=== PATIENT | male | born 1935 | race Caucasian/White ===

== ENCOUNTER 2018-02-14 23:59 | Emergency (ER) | payer MEDICARE, OTHER ==
[~2018-02-14] VITALS: Ht 180.3 cm; Wt 66.3 kg
[~2018-02-14 23:59] MED LIST: LISI5 PO; PRAV10 PO; PRED20 PO; VITA400C58 PO
[2018-02-15 00:05] VITALS: BP 148/72; PULSE 58; RESP 18; TEMP 97.9; O2SAT 98
[2018-02-15] MEDS ORDERED: diphenhydrAMINE HCL 50 MG/ML VIAL IV PUSH ONE (00:15)
[2018-02-15] MEDS ORDERED: SODIUM CHLOR 0.9% 1000 ML INJ 1,000 ML IV ONE (00:15)
[2018-02-15] MEDS ORDERED: CHOL10008 (00:15)
[2018-02-15] MEDS ORDERED: PROCHLORPERAZINE INJ 10 MG/2 ML VIAL IV PUSH ONE (00:15)
[2018-02-15] MEDS ORDERED: MIRA25TA PO (00:15)
[2018-02-15] MEDS ORDERED: GLUC100013 PO (00:15)
[2018-02-15] MEDS ORDERED: OMEGCAP PO (00:15)
[2018-02-15] MEDS ORDERED: PRAV20TA2 PO (00:15)
[2018-02-15] MEDS ORDERED: LISI-519 PO (00:15)
[2018-02-15] MEDS ORDERED: MORPHINE SULFATE 4 MG/ML INJ IV ONE (00:15)
[2018-02-15] MEDS ORDERED: TAMSULOSIN HCL 0.4 MG CAP PO ONE (00:30)
[2018-02-15 00:34] LABS: BILIRUBIN, URINE NEG (NEG); BLOOD, URINE LARGE (NEG); GLUCOSE,URINE NEG (NEG); KETONE, URINE NEG (NEG); NITRITE,URINE NEG (NEG); URINE LEUKOCYTE ESTERASE NEG (NEG)
--- NOTE | 2018-02-15 00:44 | PD ---
HPI . Flank pain Chief Complaint: Flank/Kidney Pain Time Seen by Provider: 00:09 Travel History International Travel<30 days: No Contact w/Intl Traveler<30days: No Traveled to known affect area: No History of Present Illness HPI This patient presents with chief complaint of right flank pain. Onset was tonight at about 10:00. It has been getting progressively worse since that time. Pain is rated 4/10. It is associated with nausea and bloody urine. He has a history of previous kidney stones. His pain tonight is similar to that associated with the previous kidney stones. He denies any fever. PFSH Past Medical History Arthritis: Yes (BOTH HANDS) Heart Rhythm Problems: No Cancer: Yes (PROSTATE CANCER) Cardiac Catheterization: Yes Cardiovascular Problems: Yes High Cholesterol: Yes Coronary Artery Disease: Yes Diabetes: No Diminished Hearing: No Endocrine: No Gastrointestinal Disorders: No Genitourinary: Yes Hypertension: Yes Immune Disorder: No Kidney Stones: Yes (WILLA KIDNEY STONES 9 STONES IN EACH KIDNEY) Musculoskeletal: Yes Neurologic: No Psychiatric: No Respiratory: No Immunizations Current: Yes (SHINGLES) Thyroid Disease: No Tetanus Vaccination: > 5 Years Influenza Vaccination: Yes Past Surgical History Cardiac Surgery: Yes (CABG X 4) Coronary Artery Bypass Graft: Yes (x 29 mar 2012) Eye Surgery: Yes (BILATERAL EYE CATARACT SURGERY ) Genitourinary Surgery: Yes (PROSTATECTOMY: DECEMBER 2008) Neurologic Surgery: Yes (SPONDYLOLISTHESIS: JUN 2013) Tonsillectomy: Yes Other Surgery: Yes (PROSTATECTOMY) Social History Alcohol Use: Yes (SOCIALLY) Tobacco Use: No Substance Use: No Allergies-Medications (Allergen,Severity, Reaction): Coded Allergies: No Known Allergies (Verified Adverse Reaction, Unknown, 02/15/18) Reported Meds & Prescriptions Reported Meds & Active Scripts Active Flomax (Tamsulosin HCl) 0.4 Mg Cap 0.4 Mg PO HS Phenergan (Promethazine HCl) 25 Mg Tablet 25 Mg PO Q6H PRN Percocet (Oxycodone-Acetaminophen) 5-325 mg Tab 1 Tab PO Q4H PRN Reported Myrbetriq (Mirabegron) 25 Mg Tab 25 Mg PO DAILY Glucosamine (Glucosamine Sulfate) 1,000 Mg Cap 2,000 Mg PO DAILY [place]-3 Fish Oil/Vitamin (Fish Oil-Cholecalciferol) 1,000-1,000 Mg Cap 1 Cap PO DAILY Pravastatin 20 Mg Tab 20 Mg PO HS Lisinopril 5 Mg Tab 5 Mg PO DAILY Vitamin D3 (Cholecalciferol) 1,000 Unit Cap 1,000 Units DAILY Review of Systems Except as stated in HPI: all other systems reviewed are Neg Physical Exam Narrative GENERAL: Awake and alert and in no acute distress. SKIN: Warm and dry. Normal color and turgor. HEAD: Normocephalic/atraumatic. EYES: Pupils are equal. Extraocular movements are intact. NECK: Normal range of motion. Supple. CARDIOVASCULAR: Regular rate and rhythm. RESPIRATORY: Nonlabored respirations. Normal sats. ABDOMEN: Soft and nontender. No pulsatile abdominal masses palpated. : Positive right CVA tenderness. MUSCULOSKELETAL: Atraumatic. Normal muscle tone. NEUROLOGICAL: A and O 3. Nonfocal. PSYCHIATRIC: Appropriate mood and affect. Data Data Last Documented VS Vital Signs Date Time Temp Pulse Resp B/P (MAP) Pulse Ox O2 Delivery O2 Flow Rate FiO2 02/15/18 01:16 65 16 140/67 (91) 97 Room Air 02/15/18 00:05 97.9 Orders Orders ^ Saline Lock (02/15/18 00:14) Morphine Inj (Morphine Inj) (02/15/18 00:15) Prochlorperazine Inj (Compazine Inj) (02/15/18 00:15) Diphenhydramine Inj (Benadryl Inj) (02/15/18 00:15) Sodium Chlor 0.9% 1000 Ml Inj (Ns 1000 M (02/15/18 00:15) Urinalysis - C+S If Indicated (02/15/18 00:14) Tamsulosin (Flomax) (02/15/18 00:30) Ct Abd/Pel W/O Iv Contrast (02/15/18 00:30) Ed Discharge Order (02/15/18 01:23) Labs Laboratory Tests Test 02/15/18 00:28 Urine Color RED Urine Turbidity CLOUDY Urine pH 6.0 Urine Specific [place] LESS/EQUAL 1.005 Urine Protein 30 mg/dL Urine Glucose (UA) NEG mg/dL Urine Ketones NEG mg/dL Urine Occult Blood LARGE Urine Nitrite NEG Urine Bilirubin NEG Urine Urobilinogen 0.2 MG/DL Urine Leukocyte Esterase NEG Urine RBC 50-99 /hpf Urine WBC 0-2 /hpf Urine Squamous Epithelial Cells 0-5 /hpf Microscopic Urinalysis Comment CULT NOT INDICATED MDM Medical Decision Making Medical Screen Exam Complete: Yes Emergency Medical Condition: Yes Differential Diagnosis Differential diagnosis of flank pain includes but is not limited to kidney stone , pyelonephritis, musculoskeletal pain, PE, AAA Narrative Course This patient presents with the acute onset of right flank pain associated with nausea and bloody urine. He has a history of previous kidney stones. An IV has been started. He has been given Compazine, Benadryl and morphine. I have also ordered Flomax. UA and CT are pending. UA shows blood. Last Impressions Abdomen/Pelvis CT 02/15/18 0030 Signed Impressions: CONCLUSION: 1. Multiple bilateral small renal calculi are again noted. 2. Apparent new mild right hydronephrosis with no definite ureteral calculi vi sualized. The previously noted distal left ureteral calculus is no longer prese nt. The patient is now resting comfortably. He will be discharged with prescriptions for Percocet, Phenergan and Flomax. Diagnosis Primary Impression: Flank pain Additional Impression: Hematuria Qualified Codes: R31.0 - Gross hematuria Referrals: Logan Veláqzuez DO Patient Instructions: Narcotic given in the ED Scripts Tamsulosin (Flomax) 0.4 Mg Cap 0.4 MG PO HS for Manage Prostate Problems, #30 CAP 0 Refills Prov: Macarena Aburto MD 02/15/18 Promethazine (Phenergan) 25 Mg Tablet 25 MG PO Q6H Y for NAUSEA OR VOMITING, #12 TAB 0 Refills Prov: Macarena Aburto MD 02/15/18 Oxycodone-Acetaminophen (Percocet) 5-325 mg Tab 1 TAB PO Q4H Y for PAIN, #12 TAB 0 Refills Prov: Macarena Aburto MD 02/15/18 Disposition: 01 DISCHARGE HOME Condition: Stable Macarena Aburto MD Feb 15, 2018 00:44
[2018-02-15 00:51] LABS: URINE COLOR RED (YELLW/STRAW)
[2018-02-15 00:58] LABS: SQUAMOUS EPITHELIAL CELL URINE 0-5 /hpf (0-5); WBC, URINE 0-2 /hpf (0-5)
[2018-02-15 01:06] VITALS: BP 174/83; PULSE 73; RESP 16; O2SAT 98
[2018-02-15 01:16] VITALS: BP 140/67; PULSE 65; RESP 16; O2SAT 97
--- NOTE | 2018-02-15 01:16 | RADRPT ---
EXAM DATE: 02/15/2018 1:05 AM EDT AGE/SEX: 82 years / Male INDICATIONS: Right flank pain, history of kidney stones. CLINICAL DATA: This is the patient's initial encounter. Patient reports that signs and symptoms have been present for 1 day and indicates a pain score of 9/10. MEDICAL/SURGICAL HISTORY: Renal calculi. Cardiovascular disease. Carcinoma, prostatic. hyper tension CABG. Prostatectomy. RADIATION DOSE: 4.38 CTDI (mGy) COMPARISON: [facility], CT ABDOMEN & PELVIS W/O CONTRAST, 10/29/2010. . TECHNIQUE: Multiple contiguous axial images were obtained through the abdomen. Images were obtained using multiple row detector helical technique. Using automated exposure control and adjustment of the mA and/or kV according to patient size, radiation dose was kept as low as reasonably achievable to o btain optimal diagnostic quality images. DICOM format image data is available electronically for rev iew and comparison. FINDINGS: Lower Lungs: The visualized lower lungs are clear. Liver: The liver has a homogeneous density without space-occupying lesion. There is no dilation of th e biliary tree. Spleen: Homogeneous density without enlargement. Pancreas: Unremarkable without mass or calcification. Kidneys: Normal in size and shape. Multiple small bilateral renal calculi are again noted measuring 2 to 3 mm in greatest diameter. There is mild prominence of the right renal collecting system now not ed which is change consistent with mild hydronephrosis however no definite ureteral calculi is visual ized. The previously noted distal left ureteral calculus is no longer present. Adrenal Glands: Unremarkable. Aorta: The aorta and proximal iliac vessels are grossly unremarkable without aneurysmal dilation. Bowel/Mesentery: The bowel loops are grossly unremarkable. The cecum and sigmoid colon have a normal configuration. Abdominal Wall: Intact. Retroperitoneum: No evidence of adenopathy in the retrocrural, para-aortic, or deep pelvic regions. Bladder: Contours are smooth. Reproductive Organs: No abnormal masses or calcifications seen. Inguinal: The inguinal region extensive postsurgical changes are again noted in the lumbar spine sta tus post multilevel laminectomy and fusion. Is unremarkable without evidence of adenopathy. Bony Structures: Unremarkable. CONCLUSION: 1. Multiple bilateral small renal calculi are again noted. 2. Apparent new mild right hydronephrosis with no definite ureteral calculi visualized. The previous ly noted distal left ureteral calculus is no longer present. Electronically signed by: Raymon Perez MD 02/15/2018 1:15 AM EDT
[2018-02-15] MEDS ORDERED: PERC5TAB12 PO (01:22)
[2018-02-15] MEDS ORDERED: PROM25TA10 PO (01:22)
[2018-02-15] MEDS ORDERED: TAMS5CAP PO (01:22)
== END 2018-02-15 01:38 | disposition home or self-care (01) ==
LOC: PHED 23:59
DX: R10.9 Unspecified abdominal pain (principal); R31.0 Gross hematuria; N20.0 Calculus of kidney; N13.30 Unspecified hydronephrosis; R11.0 Nausea; I10 Essential (primary) hypertension; E78.00 Pure hypercholesterolemia, unspecified; I25.10 Atherosclerotic heart disease of native coronary artery without angina pectoris; M19.90 Unspecified osteoarthritis, unspecified site; Z87.442 Personal history of urinary calculi; Z85.46 Personal history of malignant neoplasm of prostate; Z95.1 Presence of aortocoronary bypass graft; Z79.899 Other long term (current) drug therapy
CPT/HCPCS: 74176; 81001; 96361; 96374; 96375; 99284; J0780; J1200; J2270; J7030